=== PATIENT | female | born 1960 | race Caucasian/White ===

== ENCOUNTER 2016-11-13 20:42 | Observation (INO) ==
[2016-11-13] MEDS ORDERED: NITROGLYCERIN SL 0.4 MG TABLET SL PRN (22:03)
[2016-11-13] MEDS ORDERED: ONDANSETRON 4 MG/2 ML VIAL IV STA (22:03)
[2016-11-13] MEDS ORDERED: ASPIRIN 325 MG TABLET PO STA (22:03)
[2016-11-13] MEDS ORDERED: HYDROmorphone 2 MG/1 ML VIAL IV STA (22:03)
[2016-11-13] MEDS ORDERED: HYDROmorphone 2 MG/1 ML VIAL ONE (22:11)
[2016-11-13] MEDS ORDERED: ONDANSETRON 4 MG/2 ML VIAL ONE (22:11)
[2016-11-13] MEDS ORDERED: NITROGLYCERIN SL 0.4 MG TABLET SL ONE (22:12)
[2016-11-13] MEDS ORDERED: ASPIRIN 325 MG TABLET ONE (22:12)
--- NOTE | 2016-11-13 22:16 | XRay Report ---
Portable chest Date: 11/13/2016 Clinical history: Chest pain Comparison: 07/29/2012 Technique: Portable AP sitting chest Findings: The heart is normal in size. Persistent over expanded lungs. Minimal atelectasis at the lung bases. Unremarkable mediastinum with no acute osseous findings. Impression: The lungs are overexpanded which can be seen with COPD. Minimal atelectasis at the lung bases. PROCEDURE INTERPRETED AT [facility] ([facility]) DEPARTMENT OF RADIOLOGY Final Report Signed by: Dr. Estela Snyder
[2016-11-13 22:18] LABS: Basophils % 0.4 % (0.0-0.8); Eosinophils # 0.1 10*3/uL (0.0-0.87); Eosinophils % 1.1 % (0.00-10.9); Hematocrit 37.8 VOL% (35.7-47.0); Hemoglobin 12.5 GM/DL (12.0-16.0); Immature Granulocytes % 0.2 %; Immature Granulocytes Absolute 0.01 #; Lymphocytes % 37.4 % (21.3-54.2); Mean Corpuscular HGB Conc 33.1 GM/DL (32-36); Mean Corpuscular Hemoglobin 30 PG (27-34); Mean Corpuscular Volume 90.9 FL (87-102); Mean Platelet Volume 11.8 FL (9.6-12.0); Monocytes # 0.5 10*3/uL (0.11-0.8); Monocytes % 9.2 % (1.7-12.7); Neutrophils # 2.8 10*3/uL (1.4-7.4); Neutrophils % 51.7 % (38.7-73.9); Platelet Count 211 T/CUMM (130-400); Red Blood Count 4.16 MC/CUMM (3.8-5.5); Red Cell Distribution Width 12.6 % (9.3-17.3); White Blood Count 5.5 T/CUMM (4-12)
[2016-11-13 22:32] LABS: Albumin 3.8 G/DL (3.4-5.0); Bilirubin,Total 0.4 MG/DL (0.2-1.0); Magnesium 2.2 MG/DL (1.8-2.4); Osmolality,Calculated 282.3 MOS/KG (273-304); Potassium 3.8 MMOL/L (3.5-5.1); Total Protein 6.9 G/DL (6.4-8.3)
[2016-11-13 22:53] LABS: Apearance,Urine CLOUDY (Clear); Bacteria,Urine Occasional /HPF (Few); Bilirubin,Urine Negative (Negative); Blood, Urine Small mg/dL (Negative); Glucose,Urine (UA) Negative (Negative); Ketones,Urine Negative (Negative); Mucus,Urine Occasional /LPF (Occasional); Nitrite,Urine Negative (Negative); Protein,Urine Negative; RBC,Urine 4 /HPF (0-4); Squamous Epithelial Cell,Urine Occasional /HPF (0-10); Urine Color Yellow (Yellow); Urine Specific Gravity 1.009 (1.001-1.035); Urine Urobilinogen < 2.0 EU/DL (0.2-1.0); WBC,Urine 2 /HPF (0-6)
[2016-11-14] MEDS ORDERED: ONDANSETRON 4 MG/2 ML VIAL IV PRN (01:32)
--- NOTE | 2016-11-14 01:32 | Emergency Department Note ---
Cece Eid Emily, am scribing for, and in the presence of, Shabnam Banda DO 22:33. ISolo Catherine, DO, personally performed the services described in this documentation, ascribed by Janeth Zhao in my presence, and it is both accurate and complete . Arrival - Arrival Chief Complaint: Arrhythmia/Palpitations Stated Complaint: increase heart rate,chest discomfort,nausea ED Nursing Triage Note: PT STATES THAT SHE FELT LIKE HER HEART WAS RUNNING AWAY FROM HER. STATES THAT SHE HAS BEEN SEEING DR. BUCKLEY WHEN INITIALLY IT BEGAN AROUND 2 WEEKS AGO. PT STATES THAT SHE HAS EPIGASTRIC PAIN AND BELCHING. STATES THAT SHE HAS BEEN CLEARED BY GI EXCEPT FOR A HERNIA. STATES THAT SHE IS SUPPOSE TO HAVE A STRESS TEST WITH DR. BUCKLEY WEDNESDAY. PT STATES THAT IT WORSENED TONIGHT AND THAT SHE FELT ANXIOUS. PT DOES COMPLAIN OF NAUSEA AND RAPID BREATHING AT TIME OF TRIAGE. Mode of Arrival: Ambulatory Limitations: No Limitations Source: Patient Time Seen by Provider: 11/13/16 21:17 - History of Present Illness HPI Narrative: Pt is a 56 y/o female who came to ED with c/o "funny feeling" that is causing discomfort, tachycardia, nausea that worsening earlier today. Pt notes having epigastric pain, nausea, tachycardia and weakness for past 2 weeks, waxing and waning. Pt has seen GI and cleared except for hiatal hernia. She has also seen social worker with abdominal aortic US with nml aorta but inclusions coming off of it and scheduled stress test for Wednesday, November 16, 2016. Pt was concerned mainly with heart rate of 120 even with exertion. She has experienced decreased appetite, weight loss of 6 lbs in first week, burping excessively, but denies V/D, fever, or under recent stress. Pt is currently on protonix for hernia and had a c-scope in Sep 2016 and upper scope yesterday. Pt denies FMHx of heart issues. she came this evening because she felt this episode was more intense and lasted longer and it scared her. Onset (ago): week(s) Consistency: constant Severity: mild Severity scale (1-10): 1 Quality: other (funny feeling) Date of Last Menstrual Period: HYSTER Allergies/Adverse Reactions: Allergies Allergy/AdvReac Type Severity Reaction Status Date / Time No Known Allergies Allergy Verified 11/13/16 21:02 Home Medications: Home Medications Medication Instructions Recorded Confirmed Type Estrogen,Con/M-Progest Acet 1 each PO DAILY 11/13/16 11/13/16 History [Prempro 0.625-2.5 mg Tablet] Lactobacillus Rhamnosus GG 1 capsule PO DAILY 11/13/16 11/13/16 History [Culturelle] Lisinopril [Prinivil] 5 mg PO DAILY 11/13/16 11/13/16 History Pantoprazole Tab [Protonix Tab] 40 mg PO BID 11/13/16 11/13/16 History Review of System - Review of System 12 point system: reviewed and no additional remarkable complaints except as stated - Review of System Constitutional: Present: weakness (no energy). Absent: chills, fever Cardiovascular: Present: palpitations. Absent: chest pain Gastrointestinal: Present: abdominal pain (epigastric pressure), nausea. Absent : vomiting Musculoskeletal: Absent: arm pain, back pain, leg pain, neck pain Skin: Absent: rash Neurological: Absent: headache Medical,Surgical,& Family Hx - Medical History Cardio: History of: Hypertension - Surgical History Surgical History: noncontributory - Family History Family History: noncontributory - Social History Smoking Status: Never smoker Frequency of Alcohol Use: None Type of Drug Use: None Marital Status: Lives With:: Spouse Functional capacity: independent ambulation Exam Vital Signs: Vital Signs Temperature 98.3 F 11/13/16 20:42 Pulse Rate 101 H 11/13/16 20:42 Respiratory Rate 23 11/13/16 20:42 Blood Pressure 183/118 11/13/16 20:42 O2 Sat by Pulse Oximetry 100 11/13/16 20:42 - General General appearance: alert, in no apparent distress - Head Head exam: Present: atraumatic, normocephalic - Eye Eye exam: Present: PERRL, EOMI - ENT ENT exam: Present: mucous membranes moist. Absent: mucous membranes dry - Neck Neck exam: Present: full ROM. Absent: tenderness - Chest Chest inspection: Present: symmetric chest wall rise. Absent: tenderness - Respiratory Respiratory exam: Present: normal lung sounds bilaterally. Absent: respiratory distress - Cardiovascular Cardiovascular exam: Present: regular rate, normal rhythm, normal heart sounds - Abdominal Exam Abdominal exam: Present: soft, normal bowel sounds. Absent: distention, tenderness, guarding, rebound, rigidity, diminished bowel sounds - Extremities Exam Extremities exam: Present: full ROM. Absent: tenderness, pedal edema - Back Exam Back exam: Present: normal inspection, full ROM - Neurological Exam Neurological exam: Present: alert, oriented X3, CN II-XII intact. Absent: motor sensory deficit - Psychiatric Psychiatric exam: Present: normal affect, normal mood - Skin Skin exam: Present: warm, dry, intact, normal color Course Course Narrative: This is a 56-year-old female who is coming into the ER today complaining of 2 weeks worth of episodes of an upper epigastric and chest type pain associated with the tachycardia. She stated that she has had this pretty much constantly for 2 weeks against worsening gets better. She had a really bad episode today and it alarmed her and she came into the hospital. She states she has been to her primary doctor she's had multiple tests done including an upper GI and EGD a colonoscopy she's also had an ultrasound of her abdominal aorta and multiple blood tests she states everything is comeback okay. She has been talking to Dr. Buckley and he is scheduled for a stress test on Wednesday. She stated that he has concerns because her pain is atypical and she doesn't be episodes of tachycardia and was to be sure that she does not have any blockage that could be causing her symptoms. She stated that tonight the episode is less a little bit longer and she began to be concerned because she is also bad for the last 2 days. She reports no energy and just a lot of indigestion and nausea and abdominal problems. No other history is reported physical exam patient's awake alert her vital signs are stable she's afebrile HEENT exam is normal neck is supple heart is regular rate and rhythm her lungs are clear neutrophils her abdomen is rounded soft she has very minimal epigastric pain literally cannot reproduce her symptoms. Her bowel sounds are normoactive is no masses rebound or guarding extremities are intact her neurologic exam is nonfocal. Troponin the ER included an EKG which shows a right bundle branch block which she states has been chronic for her. All of her lab tests have returned normal including a normal troponin. D-dimer slightly elevated at 1.3 and I did complete a CT scan of the chest for PE which was negative. I placed a phone call to Dr. GUZMAN who is on for cardiology and we discussed the case. The patient would feel more controlled setting and observation tonight she is well aware that her stress test may not be able to be performed and she would then go home but she says she just feels uncomfortable going home at this time. We will be placing her in observation on telemetry and getting serial enzymes. - Consultations Consultation #1: Dr. Tinsley Time: 01:31 Results - Labs CBC & BMP: 11/13/16 21:02 11/13/16 21:02 Lab Results: I have reviewed the patients labs Labs: Laboratory Tests 11/13/16 11/13/16 21:02 22:41 Glucose 127 H Urine pH 8.0 Urine Blood Small Urine Urobilinogen < 2.0 H - EKG EKG results: interpreted by ERMD - Impressions RBBB - Diagnostic Findings Procedure: Chest x-ray: report reviewed by me (The lungs are overexpanded which can be seen with COPD. Minimal atelectasis at the lung bases.), CT - chest: report reviewed by me (Negative for Pulmonary Embolus) Disposition Clinical Impression: Atypical chest pain Case discussed with: patient, patient's family Disposition: Still a Patient Condition: Stable Time of Disposition: 01:32
--- NOTE | 2016-11-14 07:05 | EKG Report ---
Stationary ECG Study [facility] ER Test Date: 11/13/2016 8:48:26 PM Pat Name: ELENA JIMENEZ Department: Room: 292 Gender: F Hot Water Heater Installer: As : 1960 Requested by: Shabnam Banda Order Number: [id number] Reading MD: BRIGITTE VELEZ Intervals [place] Rate: 102 P: 67 NV: 168 QRS: 29 QRSD: 124 T: 5 QT: 336 QTc: 395 Interpretive Statements SINUS TACHYCARDIA RIGHT BUNDLE BRANCH BLOCK Electronically Signed On 11-15-16 14:48:18 CDT by BRIGITTE VELEZ [email or web address]
--- NOTE | 2016-11-14 07:40 | CT Report ---
Exam: CT chest with contrast, PE study Date: 11/13/2016 Comparison: Chest x-ray 11/13/2016 Reason: Chest pain and shortness of breath Technique: Axial images of the chest were obtained after administration of 80 cc of IV Omnipaque 350 intravenous contrast. Coronal reformatted images were also acquired. The study was performed per pulmonary embolism protocol. Total DLP: 262.90. This exam was initially interpreted by [facility]. Findings: The heart is normal in size with no evidence of aortic dissection. There is no evidence of pulmonary embolism through the segmental pulmonary arteries. No chest lymphadenopathy with prior cholecystectomy. Degenerative changes are noted. Probable chronic scarring at the lung apices. The lungs appear minimally overexpanded. Impression: No evidence of pulmonary embolism. The lungs appear minimally hyperexpanded which can be seen with possible reactive airway disease or mild COPD. Prior cholecystectomy. This CT exam was performed using one or more the following dose reduction techniques: Automated exposure control, adjustment of the MA and/or KV according to patient size, or use of iterative reconstruction technique. PROCEDURE INTERPRETED AT [facility] DEPARTMENT OF RADIOLOGY Final Report Signed by: Dr. Estela Snyder
[2016-11-14] MEDS ORDERED: PANTOPRAZOLE 40 MG TABLET PO SCH ×2 (09:00→21:00)
--- NOTE | 2016-11-14 09:04 | EKG Report ---
Stationary ECG Study [facility] Test Date: 11/14/2016 9:02:26 AM Pat Name: ELENA JIMENEZ Department: Room: 292 Gender: F Director Strategic Account Management: TREVOR : 1960 Requested by: Shabnam Banda Order Number: [id number] Reading MD: BRIGITTE VELEZ Intervals [place] Rate: 68 P: 66 WV: 161 QRS: 15 QRSD: 133 T: 7 QT: 431 QTc: 448 Interpretive Statements SINUS RHYTHM RIGHT BUNDLE BLOCK Electronically Signed On 11-15-16 14:55:26 CDT by BRIGITTE VELEZ [email or web address]
--- NOTE | 2016-11-14 12:13 | Cardiology History & Physical ---
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 She was very anxious and requested admission. For the past 2 weeks she has had nausea and abdominal pain and some reflux symptoms which is unusual for her. She has had no appetite. She has lost 6 pounds. She feels fatigued. EGD done by Dr. Anton November 12 showed hiatal hernia but no stricture and no ulcer. She was placed on Protonix 40 mg daily. She had a negative colonoscopy in September 2016. She had an abdominal ultrasound which was within normal limits. Last night ER she had a CT chest which was negative for pulmonary embolus and aortic dissection. Chest x-ray shows a normal heart size with no infiltrate or effusion. The patient a lifetime non-smoker. She has a rare social drink only. She does have chronic hypertension has been under treatment for 2 years. In the past she took Bystolic but insurance coverage would not pay for it so she is now on lisinopril 5 mg daily. She does have a dry cough more noticeable at nighttime. She denies fever chills or night sweats. The EKG shows sinus rhythm with right bundle branch block and ST-T wave changes. There is no family history of CAD. The patient is scheduled to undergo nuclear stress testing with Dr. Nunez on November 16 in the [facility] office. Mother is 79 in good health. Father age 76 from Parkinson's disease. Her brother 61 in good health. Another brother is 54 and has hypertension. 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 2 children and 4 grandchildren. She lives in [place]. 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 She had multiple abscesses and surgical drainage procedures. She was on antibiotics for 2 years. Lab data White count 5.5 hemoglobin 12.5 hematocrit 37.8 d-dimer 1.3 Sodium 141 potassium 3.8 chloride 107 CO2 23 BUN 12 creatinine 0.80 Glucose 127 magnesium 2.2 negative UA and negative troponin 3 EKG shows sinus rhythm right bundle and ST-T wave changes Blood pressure is currently 130/74 her pulse is 76 and regular respirations 16 bilateral arcus no xanthelasma flat neck veins. No carotid bruit. Clear lungs. Regular rhythm. No murmur or gallop. No chest wall tenderness to palpation. Abdomen soft benign. Bowel sounds active. Femoral pulses 2+ without bruit distal pulses 2+ symmetric lymphedema Impression Nausea vomiting epigastric pain for 2 weeks This is not a cardiac problem. Hypertension Nonproductive cough which may be due to lisinopril Status post laparoscopically cystectomy EGD November 12, 2014 showed hiatal hernia but no stricture and no ulcer Negative CT of the chest Status post hysterectomy 15 years ago complicated by Mycobacterium fortuitum intra-abdominal abscesses requiring multiple surgeries and 2 years of antibiotic therapy and subsequent abdominoplasty Plan DC lisinopril Begin Lopressor [address] abdomen and pelvis Nuclear stress test is scheduled [facility] office WednesdayNovember 16 Home Medications Medication Instructions Recorded Confirmed Type Estrogen,Con/M-Progest Acet 1 each PO DAILY 11/13/16 11/13/16 History [Prempro 0.625-2.5 mg Tablet] Lactobacillus Rhamnosus GG 1 capsule PO DAILY 11/13/16 11/13/16 History [Culturelle] Lisinopril [Prinivil] 5 mg PO DAILY 11/13/16 11/13/16 History Pantoprazole Tab [Protonix Tab] 40 mg PO BID 11/13/16 11/13/16 History Allergies Allergy/AdvReac Type Severity Reaction Status Date / Time No Known Allergies Allergy Verified 11/13/16 21:02 Medical,Surgical,& Family Hx - Medical History Cardio: History of: Hypertension - Surgical History Thoracic Surgeries: Patient denies;: Organ Transplant Reproductive Surgeries: Surgical HX of;: Hysterectomy - Family History Family History: Reports;: Family Stroke (maternal grandmother) - Social History Smoking Status: Never smoker Frequency of Alcohol Use: None Type of Drug Use: None Cardiology Physical Exam - Constitutional Vitals: Vital Signs Temp Pulse Resp BP Pulse Ox 98.0 F 67 18 137/65 97 11/14/16 07:50 11/14/16 07:50 11/14/16 07:50 11/14/16 07:50 11/14/16 07:50 Intake and Output 11/13/16 11/14/16 11/14/16 23:59 07:59 15:59 Intake Total 120 / 120 Balance 120 / 120 Intake: Oral 120 / 120 Other: # Voids 1 Weight 84.459 kg Patient Weight 11/14/16 23:59 Weight 84.459 kg Result/EKG - Labs CBC & BMP: 11/13/16 21:02 11/13/16 21:02 Labs: Laboratory Results - last 24 hr 11/14/16 11/14/16 01:38 04:34 Troponin I < 0.015 < 0.015
[2016-11-14] MEDS ORDERED: METOPROLOL TARTRATE 50 MG TABLET PO SCH (12:30)
--- NOTE | 2016-11-14 14:11 | Discharge Summary ---
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 For the past 2 weeks she has been nauseated and having intermittent abdominal epigastric pain. She has had more reflux than usual. EEG done November 12 showed hiatal hernia but no stricture no ulcer. She was placed on Protonix [address] Anton. She had a negative colonoscopy in September 2016. CT chest was negative for pulmonary embolus and aortic dissection. Chest x-ray shows normal heart size with no infiltrate or effusion. The patient a lifetime non-smoker. Rare social drinker only. She does have chronic hypertension and has been taking medication for 2 years. She had recently been taking lisinopril 5 mg daily which was stopped due to dry cough and she was placed on metoprolol 50 mg daily during this admission. Status post laparoscopic cholecystectomy. 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 She had multiple abdominal abscesses and surgical drainage procedures. She was on antibiotics for 2 years. The patient has no family history for early heart disease. No diabetes. The patient is pain-free and comfortable and wants to go home. She is scheduled to have an exercise Cardiolite stress test in the [facility] office on WednesdayNovember 16. CT of the abdomen and pelvis was done today. Results are pending. I suspect that she has adhesions causing her intermittent abdominal complaints. I will review these thoughts with Dr. Anton. Plan Home today Lisinopril has been stopped Metoprolol 50 mg daily Routine GE reflux precautions reviewed Continue Protonix daily Stress test with Dr. Nunez [facility] office November 16 - Time spent with patient Time with patient DS: Greater than 30 minutes Diagnosis - Discharge Diagnosis (1) Nausea Status: Acute (2) Abdominal pain Status: Acute (3) Status post laparoscopic cholecystectomy Status: Resolved (4) Right bundle branch block Status: Chronic (5) GE reflux Status: Acute (6) Status post hysterectomy Status: Resolved (7) Status post hysterectomy Status: Resolved (8) Lifetime non-smoker Status: Resolved Discharge Plan - Discharge Data Disposition: Disch To Home/Self Care Condition at Discharge: Stable Discharge Diet: low fat, low cholesterol Activity: resume usual activities as tolerated Hygiene: no restrictions Weight Bearing at Discharge: full weight bearing Driving: no restrictions Contact your physician if you experience:: fever over 101, Difficulty voiding, Redness or swelling, Nausea/Vomiting, Shortness of breath, Bleeding - Discharge Medications New Metoprolol Tartrate Tab [Lopressor Tab] 50 mg PO DAILY tablet Continue Pantoprazole Tab [Protonix Tab] 40 mg PO BID Lactobacillus Rhamnosus GG [Culturelle] 1 capsule PO DAILY Estrogen,Con/M-Progest Acet [Prempro 0.625-2.5 mg Tablet] 1 each PO DAILY Discontinued Lisinopril [Prinivil] 5 mg PO DAILY - Follow Up or Referral - Forms/Instructions Additional Discharge Instructions: Lisinopril 5 mg daily has been stopped. Begin metoprolol tartrate 50 mg daily. Exercise Cardiolite stress test scheduled for November [address] [facility] [address] Nunez. Exam - Constitutional Vitals: Period Temp Pulse Resp BP Sys/Lord Pulse Ox Last 24 Hr 97.7 F-98.7 F 67-84 16-100 114-170/47-84 97-98 General appearance: over weight - Head Head exam: Present: normal inspection - Eye Eye exam: Present: EOMI Pupils: Present: STEVEN - ENT ENT exam: Present: normal exam - Neck Neck exam: Present: normal inspection - Cardiovascular Cardiovascular exam: Present: regular rate and rhythm - GI/Abdominal GI/Abdominal exam: Present: normal bowel sounds - Extremities Exam Extremities exam: Present: normal inspection - Back Exam Back exam: Present: normal inspection - Neurological Exam Neurological exam: Present: alert, oriented X3 - Psychiatric Psychiatric exam: Present: normal affect, normal mood - Skin Skin exam: Present: normal color, warm Discharge Results Procedures and tests throughout hospitalization: Pending Orders 11/14/16 12:03 CT abdomen pelvis w con Routine Labs on day of discharge: Labs from last 24 hours 11/14/16 11/14/16 04:34 01:38 Troponin I < 0.015 < 0.015 DS: Provider Date of admission: 11/14/16 01:32 Primary care physician: . No PCP Attending physician on admission: Cj Tinsley MD Discharging clinician: Cj Tinsley MD Expected date of discharge: 11/14/16
[2016-11-14 17:02] VITALS: BP 133/82
--- NOTE | 2016-11-14 17:27 | CT Report ---
Referring physician: Cj Tinsley EXAM: CT abdomen and pelvis with contrast DATE: 11/14/2016 COMPARISON: 04/25/2013 REASON: Generalized abdominal pain with nausea TECHNIQUE: Axial images of the abdomen and pelvis were obtained after administration of 100 cc of Omnipaque 350 IV contrast. Oral contrast was also administered. Coronal and sagittal reformatted images were also provided. Total DLP is 1030.30 mGy*cm. FINDINGS: Minimal atelectasis at the lung bases with cardiac fat pad. Fatty infiltration of the liver which is normal in size with no masses or dilated ducts in patient with prior cholecystectomy. The spleen, pancreas, and adrenal glands have an unremarkable appearance. Cortical scarring in the kidneys with no renal or ureteral calculi. The abdominal aorta is normal in size with no adjacent adenopathy. No dilatation of the small bowel. Incomplete distention of the distal colon with contrast with diverticulosis. Prior appendectomy and hysterectomy with no free air or free fluid. Unremarkable urinary bladder with degenerative changes. IMPRESSION: Status post cholecystectomy, appendectomy, and hysterectomy. Diverticulosis of the colon with incomplete distention with oral contrast in the left colon. This finding makes it more difficult to exclude minimal recurrent diverticulitis, colitis, or inflammatory bowel disease. The CT exam was performed using one or more of the following dose reduction techniques: Automated exposure control and adjustment of the mA and/or kV according to patient size. PROCEDURE INTERPRETED AT [facility] DEPARTMENT OF RADIOLOGY Final Report Signed by: Dr. Estela Snyder
[2016-11-15] MEDS ORDERED: M PROGEST ACET PO SCH (09:00)
[2016-11-15] MEDS ORDERED: LACTOBACILLUS RHAMNOSUS GG CAPSULE PO SCH (09:00)
[2016-11-15] MEDS ORDERED: ESTROGEN CON PO SCH (09:00)
== END 2016-11-14 17:44 | disposition home or self-care (01) ==
LOC: N.ED 20:42 → N.EDINP 20:42 → N.TELEN 11-14 02:11
PROVIDERS: ADMIT Internal Medicine Cardiovascular Disease; ATTEND Internal Medicine Cardiovascular Disease